=== PATIENT | female | born 1965 ===

== ENCOUNTER 2018-04-05 05:43 | Day surgery (SDC) | payer OTHER ==
[~2018-04-05 05:43] MED LIST: TOPROL XL25 M1 PO
[2018-04-05] MEDS ORDERED: ULTRACET PO (14:00)
== END 2018-04-05 16:20 | disposition home or self-care (01) ==
LOC: CIR.AMB 05:43
DX: C73 Malignant neoplasm of thyroid gland (principal); D35.1 Benign neoplasm of parathyroid gland

== ENCOUNTER 2018-04-19 09:01 | Outpatient (CLI) | payer OTHER ==
[~2018-04-19 09:01] MED LIST changes: +ULTRACET PO
== END 2018-04-19 09:02 | disposition home or self-care (01) ==
LOC: LAB 09:01
DX: C73 Malignant neoplasm of thyroid gland (principal)